=== PATIENT | female | born 1955 | race Caucasian/White ===

== ENCOUNTER → 2016-11-26 | Outpatient (CLI) | payer BC ==
[~2016-11-26] MED LIST: CEPHALEXIN500 MG; ESCITALOPRAM OX10 MG; HYDROCODON-ACE1 EAC7; PLAQUENIL200 MG; RHINOCORT AQUA8.6 G1; SYNTHROID137 MCG; VICODIN,LORT1 TABLET PO
== END | disposition home or self-care (01) ==
LOC: EKG 13:00
DX: I05.1 Rheumatic mitral insufficiency (principal); I07.1 Rheumatic tricuspid insufficiency; I27.20 Pulmonary hypertension, unspecified
CPT/HCPCS: 93306